=== PATIENT | female | born 1970 | race Two or more races ===

== ENCOUNTER 2023-03-24 13:10 | Outpatient (CLI) | payer OTHER ==
[~2023-03-24 13:10] MED LIST: COLACE100 MG PO; PERCOCET 5/3251 TAB PO
== END 2023-03-24 13:18 | disposition home or self-care (01) ==
LOC: MAMO-SONO 13:10
PROVIDERS: ATTEND General Practice
DX: Z12.31 Encounter for screening mammogram for malignant neoplasm of breast (principal); N63.0 Unspecified lump in unspecified breast

== ENCOUNTER 2023-04-16 22:34 | Emergency (ER) | payer OTHER ==
[~2023-04-16] VITALS: Ht 162.6 cm; Wt 105.2 kg
[2023-04-16] MEDS ORDERED: GLUMETZA500 MG PO (22:46)
== END 2023-04-17 03:01 | disposition home or self-care (01) ==
LOC: ER 22:34
DX: R10.84 Generalized abdominal pain (principal); K21.9 Gastro-esophageal reflux disease without esophagitis; K59.00 Constipation, unspecified; Z91.041 Radiographic dye allergy status; E11.9 Type 2 diabetes mellitus without complications; Z79.84 Long term (current) use of oral hypoglycemic drugs

== ENCOUNTER 2023-10-01 04:44 | Emergency (ER) | payer OTHER ==
[~2023-10-01] VITALS: Ht 162.6 cm; Wt 108.4 kg
[~2023-10-01 04:44] MED LIST changes: +GLUMETZA500 MG PO
[2023-10-01] MEDS ORDERED: ZESTORETIC 10-1 EACH (04:53)
[2023-10-01] MEDS ORDERED: CEPHALEXIN500 MG PO (05:56)
== END 2023-10-01 06:03 ==
LOC: ER 04:44
DX: S61.552A Open bite of left wrist, initial encounter (principal); S69.90XA Unspecified injury of unspecified wrist, hand and finger(s), initial encounter; X58.XXXA Exposure to other specified factors, initial encounter; Y93.89 Activity, other specified; Y92.69 Other specified industrial and construction area as the place of occurrence of the external cause; Y99.8 Other external cause status; Z91.041 Radiographic dye allergy status; I10 Essential (primary) hypertension; E11.9 Type 2 diabetes mellitus without complications; Z79.84 Long term (current) use of oral hypoglycemic drugs

== ENCOUNTER 2023-11-04 04:57 | Emergency (ER) | payer OTHER ==
[~2023-11-04] VITALS: Ht 162.6 cm; Wt 108.9 kg
[~2023-11-04 04:57] MED LIST changes: +CEPHALEXIN500 MG PO; +ZESTORETIC 10-1 EACH
[2023-11-04] MEDS ORDERED: ZYNCOF 20-400120 ML PO (06:36)
[2023-11-04] MEDS ORDERED: SINGULAIR10 MG PO (06:36)
[2023-11-04] MEDS ORDERED: BUDESONIDE0.5 MG/2 M IH (06:36)
[2023-11-04] MEDS ORDERED: ALBUTEROL2.5 MG/3 M IH (06:36)
== END 2023-11-04 06:43 ==
LOC: ER 04:57
DX: J45.901 Unspecified asthma with (acute) exacerbation (principal)

== ENCOUNTER → 2024-07-12 | Day surgery (SDC) | payer OTHER ==
[2024-07-08 09:48] LABS: URINE APPEARANCE Clear; URINE BILIRRUBIN Negative (NEGATIVE); URINE BLOOD Negative; URINE COLOR Yellow; URINE KETONE Negative (NEGATIVE); URINE LEUKOCYTE Negative; URINE NITRATE Negative; URINE PROTEIN Negative (NEGATIVE); URINE UROBILINOGEN 0.2 E.U./dl
[2024-07-08 09:51] LABS: URINE BACTERIA 1588.8 uL (0.0-1933); URINE EPITHELIAL CELLS 23.3 uL (0.0-38.8); URINE WBC 8.8 uL (0.0-23.2)
[2024-07-08 09:59] LABS: URINE CAST 0.45 uL (0.0-1.40); URINE GLUCOSE >=1000 MG/DL (NEGATIVE)
[2024-07-08 10:26] LABS: HEMATOCRIT 41.7 % (36.0-45.00); HEMOGLOBIN 13.9 g/dL (12.0-15.00); MEAN CELL VOLUME 84.2 fL (80.00-100.00); MEAN CORPUSCULAR HEMOGLOBIN 28.1 pg (27.00-32.0); MEAN CORPUSCULAR HGB CONC 33.4 g/dl (32.0-36.0); PLATELET COUNT 222 K/uL (150-450); RED BLOOD COUNT 4.95 M/uL (4.00-6.00); RED CELL DISTRIBUTION WIDTH 15.2 % (11.5-14.5)
[2024-07-08 10:55] LABS: INR 0.96; PARTIAL THROMBOPLASTIN TIME 30.2 SECONDS (22.0-34.0)
[2024-07-08 11:03] LABS: PROTHROMBIN TIME 10.5 SECONDS (9.0-11.5)
[2024-07-08 11:04] LABS: ALBUMIN 3.8 gm/dL (3.4-5.0); BILIRUBIN TOTAL 1.17 mg/dL (0.3-1.2); CALCIUM 9.5 mg/dL (8.5-10.1); CREATININE SERUM 0.61 mg/dL (0.55-1.02); GFR 101.46; GLOBULINA 3.1 G/DL (2.4-3.5); POTASSIUM 3.97 mEq/L (3.5-5.1); TOTAL PROTEIN 6.9 gm/dL (6.4-8.2)
[~2024-07-12] MED LIST changes: +ALBUTEROL2.5 MG/3 M IH; +BUDESONIDE0.5 MG/2 M IH; +FAMOTIDINE/PF 20 MG/2 ML VIAL IV ONE; +FAMOTIDINE/PF 20 MG/2 ML VIAL ONE; +JARDIANCE10 MG PO; +METFORMIN HCL850 MG PO; +MORPHINE SULFATE 4 MG/ML VIAL IV ONE; +POVIDONE-IODINE 118 ML BOTT TOP ONE; +RINGERS SOLUTION,LACTATED 1,000 ML IV SCH; +SIMVASTATIN5 MG; +SINGULAIR10 MG PO; +VITAMIN D310 MC1; +ZESTRIL2.5 MG; +ZYNCOF 20-400120 ML PO
== END | disposition home or self-care (01) ==
LOC: ADM 07-08 08:15 → CIR.AMB 06:40
PROVIDERS: ATTEND General Practice
DX: N95.0 Postmenopausal bleeding (principal); N88.2 Stricture and stenosis of cervix uteri; I10 Essential (primary) hypertension; E11.9 Type 2 diabetes mellitus without complications; Z91.041 Radiographic dye allergy status

== ENCOUNTER 2024-08-05 08:57 | Outpatient (CLI) | payer OTHER ==
[~2024-08-05 08:57] MED LIST changes: -FAMOTIDINE/PF 20 MG/2 ML VIAL IV ONE; -FAMOTIDINE/PF 20 MG/2 ML VIAL ONE; -MORPHINE SULFATE 4 MG/ML VIAL IV ONE; -POVIDONE-IODINE 118 ML BOTT TOP ONE; -RINGERS SOLUTION,LACTATED 1,000 ML IV SCH
== END 2024-08-05 09:18 | disposition home or self-care (01) ==
LOC: MRI 08:57
PROVIDERS: ATTEND General Practice
DX: N95.0 Postmenopausal bleeding (principal); N85.00 Endometrial hyperplasia, unspecified; R10.2 Pelvic and perineal pain
CPT/HCPCS: 72196

== ENCOUNTER 2024-08-25 07:14 | Outpatient (CLI) | payer OTHER | END 2024-08-25 07:39 | disposition home or self-care (01) | LOC: MAMO-SONO 07:14 | PROVIDERS: ATTEND General Practice | DX: R10.2 Pelvic and perineal pain (principal); N60.11 Diffuse cystic mastopathy of right breast; N60.12 Diffuse cystic mastopathy of left breast; N64.0 Fissure and fistula of nipple; N63.0 Unspecified lump in unspecified breast ==

== ENCOUNTER 2024-11-07 13:20 | Outpatient (CLI) | payer OTHER | END 2024-11-07 13:31 | disposition home or self-care (01) | LOC: SONOGRAMA 13:20 | PROVIDERS: ATTEND General Practice | DX: M79.601 Pain in right arm (principal); M79.621 Pain in right upper arm; M25.521 Pain in right elbow ==

== ENCOUNTER 2025-02-02 08:45 | Inpatient (IN) | payer OTHER ==
[~2025-02-02] VITALS: Ht 162.6 cm; Wt 99.8 kg
[~2025-02-02 08:45] MED LIST changes: -ZESTRIL2.5 MG; +ZESTRIL2.5 MG PO
[2025-02-03 09:43] LABS: HEMATOCRIT 45.4 % (36.0-45.00); HEMOGLOBIN 14.8 g/dL (12.0-15.00); MEAN CELL VOLUME 84.6 fL (80.00-100.00); MEAN CORPUSCULAR HEMOGLOBIN 27.6 pg (27.00-32.0); MEAN CORPUSCULAR HGB CONC 32.6 g/dl (32.0-36.0); PLATELET COUNT 195 K/uL (150-450); RED BLOOD COUNT 5.36 M/uL (4.00-6.00); RED CELL DISTRIBUTION WIDTH 15.3 % (11.5-14.5)
[2025-02-03 10:01] LABS: PH,URINE 5.5 (5.0-8.0); URINE APPEARANCE Clear; URINE BILIRRUBIN Negative (NEGATIVE); URINE BLOOD Negative; URINE COLOR Yellow; URINE GLUCOSE Negative (NEGATIVE); URINE KETONE Negative (NEGATIVE); URINE LEUKOCYTE Negative; URINE NITRATE Negative; URINE PROTEIN Negative (NEGATIVE); URINE UROBILINOGEN 0.2 E.U./dl
[2025-02-03 10:03] VITALS: BP 137/77
[2025-02-03 10:05] LABS: URINE BACTERIA 1669.4 uL (0.0-1933); URINE EPITHELIAL CELLS 51.9 uL (0.0-38.8); URINE WBC 21.5 uL (0.0-23.2)
[2025-02-03 10:07] LABS: URINE CAST 0.88 uL (0.0-1.40)
[2025-02-03 10:36] LABS: ALBUMIN 3.6 gm/dL (3.4-5.0); BILIRUBIN TOTAL 1.28 mg/dL (0.3-1.2); CALCIUM 9.3 mg/dL (8.5-10.1); CREATININE SERUM 0.61 mg/dL (0.55-1.02); GFR 101.46; GLOBULINA 3.1 G/DL (2.4-3.5); POTASSIUM 4.03 mEq/L (3.5-5.1); TOTAL PROTEIN 6.7 gm/dL (6.4-8.2)
[2025-02-03 10:42] LABS: INR 0.96; PARTIAL THROMBOPLASTIN TIME 27.5 SECONDS (22.0-34.0); PROTHROMBIN TIME 10.5 SECONDS (9.0-11.5)
[2025-02-03 11:03] LABS: RH POSITIVE
[2025-02-16] MEDS ORDERED: CEFAZOLIN SODIUM 1,000 MG VIAL ONE ×2 (14:29→20:49)
[2025-02-16] MEDS ORDERED: CHLORHEXIDINE GLUCONATE 120 ML BOTTLE TOP ONE (15:35)
[2025-02-16] MEDS ORDERED: SURGIFLO APPLICATOR 1 EACH APPL TOP ONE (15:36)
[2025-02-16] MEDS ORDERED: RINGERS SOLUTION,LACTATED 1,000 ML IV SCH (18:45)
[2025-02-16] MEDS ORDERED: ONDANSETRON HCL 2 MG/ML VIAL IV PRN (19:00)
[2025-02-16] MEDS ORDERED: MEPERIDINE HCL 25 MG/ML AMPUL IV PRN (19:00)
[2025-02-16] MEDS ORDERED: PROMETHAZINE HCL 25 MG/ML AMPUL IV PRN (19:00)
[2025-02-16] MEDS ORDERED: FAMOTIDINE/PF 20 MG/2 ML VIAL ONE (20:49)
[2025-02-16] MEDS ORDERED: FAMOTIDINE/PF 20 MG/2 ML VIAL IV SCH (21:00)
[2025-02-16] MEDS ORDERED: CEFAZOLIN SODIUM 1,000 MG VIAL IV SCH (21:00)
[2025-02-16 21:51] LABS: HEMATOCRIT 40.2 % (36.0-45.00); HEMOGLOBIN 13.1 g/dL (12.0-15.00); MEAN CELL VOLUME 84.8 fL (80.00-100.00); MEAN CORPUSCULAR HEMOGLOBIN 27.6 pg (27.00-32.0); MEAN CORPUSCULAR HGB CONC 32.6 g/dl (32.0-36.0); PLATELET COUNT 189 K/uL (150-450); RED BLOOD COUNT 4.75 M/uL (4.00-6.00); RED CELL DISTRIBUTION WIDTH 15.6 % (11.5-14.5)
[2025-02-16] MEDS ORDERED: MORPHINE SULFATE 4 MG/ML VIAL IV ONE (22:35)
[2025-02-17 00:45] VITALS: BP 108/65; O2SAT 95
[2025-02-17] MEDS ORDERED: ENOXAPARIN SODIUM 40 MG/0.4 ML SYRINGE SUBCUTANEO NR (06:00)
[2025-02-17 08:00] VITALS: BP 115/73; O2SAT 97
[2025-02-17] MEDS ORDERED: OxyCODONE HCL/APAP UD (PERCOCET) PO SCH (08:00)
[2025-02-17] MEDS ORDERED: ACETAMINOPHEN 500 MG GEL..CAP PO PRN (08:30)
[2025-02-17] MEDS ORDERED: LISINOPRIL 10 MG TABLET PO SCH (09:00)
[2025-02-17] MEDS ORDERED: DOCUSATE SODIUM 100MG CAP PO SCH (09:00)
[2025-02-17] MEDS ORDERED: SIMETHICONE 125 MG CAPSULE PO SCH (09:00)
[2025-02-17] MEDS ORDERED: LEVALBUTEROL HCL 0.63 MG/3 ML SOLUTION IH NR (13:00)
[2025-02-17] MEDS ORDERED: INSULIN LISPRO 1,000 UNIT/10 ML UNITS SUBCUTANEO PRN (16:15)
[2025-02-17] MEDS ORDERED: DEXTROSE 50 % IN WATER 0.5 G/ML VIAL IV PRN (16:15)
[2025-02-17 16:54] VITALS: BP 136/83; O2SAT 98
[2025-02-17] MEDS ORDERED: KETOROLAC TROMETHAMINE 30 MG VIAL IM SCH (17:00)
[2025-02-17] MEDS ORDERED: MetFORMIN HCL 850 MG TABLET PO SCH (17:00)
[2025-02-17] MEDS ORDERED: MINERAL OIL 30 ML BLIST.PACK PO NR (17:30)
[2025-02-17] MEDS ORDERED: MAGNESIUM HYDROXIDE 30 ML BLIST.PACK PO NR (17:30)
[2025-02-17] MEDS ORDERED: GUAIFENESIN 100 MG/5 ML BLIST.PACK PO SCH (18:00)
[2025-02-17] MEDS ORDERED: LEVALBUTEROL HCL 0.63 MG/3 ML SOLUTION IH SCH (21:00)
[2025-02-18 00:39] VITALS: BP 129/75; O2SAT 97
[2025-02-18 08:00] VITALS: BP 128/79; O2SAT 98
[2025-02-18] MEDS ORDERED: PHENOL 177 ML BOTTLE MM PRN (08:45)
[2025-02-18] MEDS ORDERED: PHENOL 177 ML BOTTLE MM ONE (08:45)
[2025-02-18] MEDS ORDERED: MORPHINE SULFATE 4 MG/ML CARTRIDGE IV ONE ×2 (08:45)
== END 2025-02-18 14:27 | disposition home or self-care (01) | DRG 743 ==
LOC: SURH 02-16 07:00 → O/R 02-16 11:56 → SURH 02-16 11:56
PROVIDERS: ADMIT General Practice; ATTEND General Practice
PROC: 0UT74ZZ Resection of Bilateral Fallopian Tubes, Percutaneous Endoscopic Approach (ICD-10-PCS; 2025-02-16)
PROC: 0UT94ZZ Resection of Uterus, Percutaneous Endoscopic Approach (ICD-10-PCS; principal; 2025-02-16 07:00)
PROC: 0UT24ZZ Resection of Bilateral Ovaries, Percutaneous Endoscopic Approach (ICD-10-PCS; 2025-02-17)
PROC: 0UN14ZZ Release Left Ovary, Percutaneous Endoscopic Approach (ICD-10-PCS; 2025-02-17)
PROC: 0UN74ZZ Release Bilateral Fallopian Tubes, Percutaneous Endoscopic Approach (ICD-10-PCS; 2025-02-17)
PROC: 0DNU4ZZ Release Omentum, Percutaneous Endoscopic Approach (ICD-10-PCS; 2025-02-17)
PROC: 0DNW4ZZ Release Peritoneum, Percutaneous Endoscopic Approach (ICD-10-PCS; 2025-02-17)
PROC: 0WBH4ZZ Excision of Retroperitoneum, Percutaneous Endoscopic Approach (ICD-10-PCS; 2025-02-17)
PROC: 0USG4ZZ Reposition Vagina, Percutaneous Endoscopic Approach (ICD-10-PCS; 2025-02-17)
DX: D25.1 Intramural leiomyoma of uterus (principal); D25.0 Submucous leiomyoma of uterus; N80.03 Adenomyosis of the uterus; N95.0 Postmenopausal bleeding

== ENCOUNTER 2025-02-24 11:55 | Inpatient (IN) | payer OTHER ==
[~2025-02-24] VITALS: Ht 162.6 cm; Wt 98.0 kg
[2025-02-24] MEDS ORDERED: MORPHINE SULFATE 4 MG/ML VIAL IV ONE (12:45)
[2025-02-24] MEDS ORDERED: 0.9 % SODIUM CHLORIDE 1,000 ML IV ONE (12:45)
[2025-02-24] MEDS ORDERED: METHYLPREDNISOLONE SOD SUCC 40 MG VIAL IV ONE (12:45)
[2025-02-24] MEDS ORDERED: DIPHENHYDRAMINE HCL 50 MG/ML VIAL 1ML IV ONE (12:45)
[2025-02-24] MEDS ORDERED: FAMOtidine 10 MG/ML (4ML VIAL) IV ONE (12:45)
[2025-02-24 13:12] LABS: HEMOGLOBIN 12.9 g/dL (12.0-15.00); MEAN CELL VOLUME 84.6 fL (80.00-100.00); MEAN CORPUSCULAR HEMOGLOBIN 27.9 pg (27.00-32.0); PLATELET COUNT 251 K/uL (150-450); RED BLOOD COUNT 4.61 M/uL (4.00-6.00); RED CELL DISTRIBUTION WIDTH 15.3 % (11.5-14.5)
[2025-02-24 13:52] LABS: ALBUMIN 2.9 gm/dL (3.4-5.0); BILIRUBIN TOTAL 0.5 mg/dL (0.3-1.2); CALCIUM 9.2 mg/dL (8.5-10.1); CREATININE SERUM 0.56 mg/dL (0.55-1.02); GFR 111.58; GLOBULINA 4.4 G/DL (2.4-3.5); POTASSIUM 3.5 mEq/L (3.5-5.1); TOTAL PROTEIN 7.3 gm/dL (6.4-8.2)
[2025-02-24 13:56] LABS: INR 0.96; PARTIAL THROMBOPLASTIN TIME 28.4 SECONDS (22.0-34.0); PROTHROMBIN TIME 10.5 SECONDS (9.0-11.5)
[2025-02-24] MEDS ORDERED: PIPERACILLIN/TAZOBACTAM SODIUM 3.375 GM VIAL IV SCH (21:24)
[2025-02-24] MEDS ORDERED: FAMOTIDINE/PF 20 MG/2 ML VIAL IV SCH (21:34)
[2025-02-24] MEDS ORDERED: MORPHINE SULFATE 4 MG/ML VIAL IV PRN (21:45)
[2025-02-24] MEDS ORDERED: ACETAMINOPHEN 500 MG GEL..CAP PO PRN (21:45)
[2025-02-24] MEDS ORDERED: 0.9 % SODIUM CHLORIDE 1,000 ML IV SCH (21:45)
[2025-02-25] MEDS ORDERED: LISINOPRIL 10 MG TABLET PO SCH (09:00)
[2025-02-25] MEDS ORDERED: MetFORMIN HCL 850 MG TABLET PO SCH (17:00)
[2025-02-25 17:15] VITALS: BP 120/80
[2025-02-25] MEDS ORDERED: KETOROLAC TROMETHAMINE 30 MG VIAL IV PRN (19:00)
[2025-02-26 00:10] VITALS: BP 102/68
[2025-02-26 07:53] VITALS: BP 96/58
[2025-02-26 16:00] VITALS: BP 126/77
[2025-02-26 20:00] VITALS: BP 102/64
[2025-02-27 00:14] VITALS: BP 134/69
[2025-02-27 06:28] LABS: HEMATOCRIT 33.5 % (36.0-45.00); MEAN CELL VOLUME 84.9 fL (80.00-100.00); MEAN CORPUSCULAR HEMOGLOBIN 27.9 pg (27.00-32.0); MEAN CORPUSCULAR HGB CONC 32.8 g/dl (32.0-36.0); PLATELET COUNT 248 K/uL (150-450); RED BLOOD COUNT 3.95 M/uL (4.00-6.00); RED CELL DISTRIBUTION WIDTH 15.3 % (11.5-14.5)
[2025-02-27 08:54] VITALS: BP 114/70
[2025-02-27 13:01] VITALS: BP 114/27
[2025-02-27 16:00] VITALS: BP 131/78
[2025-02-27] MEDS ORDERED: fentaNYL CITRATE 50 MCG/ML AMPUL IV PUSH ONE (17:15)
[2025-02-27] MEDS ORDERED: MIDAZOLAM HCL 2 MG/2 ML VIAL IV PUSH ONE (17:15)
[2025-02-27 23:51] VITALS: BP 105/62
[2025-02-28 05:00] VITALS: BP 110/76
[2025-02-28 12:35] VITALS: BP 115/74
[2025-02-28] MEDS ORDERED: LACTOBACILLUS ACIDOPHILUS 1 CAP CAP PO SCH (12:58)
[2025-02-28 14:48] LABS: HEMATOCRIT 37.5 % (36.0-45.00); HEMOGLOBIN 12.2 g/dL (12.0-15.00); MEAN CELL VOLUME 84.7 fL (80.00-100.00); MEAN CORPUSCULAR HEMOGLOBIN 27.5 pg (27.00-32.0); MEAN CORPUSCULAR HGB CONC 32.4 g/dl (32.0-36.0); PLATELET COUNT 324 K/uL (150-450); RED BLOOD COUNT 4.43 M/uL (4.00-6.00); RED CELL DISTRIBUTION WIDTH 15.4 % (11.5-14.5)
[2025-02-28] MEDS ORDERED: MORPHINE SULFATE 4 MG/ML CARTRIDGE IV PRN ×2 (15:45→16:00)
[2025-02-28 16:00] VITALS: BP 112/71
[2025-02-28] MEDS ORDERED: fentaNYL CITRATE 50 MCG/ML AMPUL IV PUSH ONE (18:15)
[2025-02-28] MEDS ORDERED: MIDAZOLAM HCL 2 MG/2 ML VIAL IV PUSH ONE (18:15)
[2025-03-01 00:13] VITALS: BP 113/71
[2025-03-01 05:00] VITALS: BP 105/62
[2025-03-01 08:00] VITALS: BP 107/71
[2025-03-01 16:00] VITALS: BP 104/58
[2025-03-01] MEDS ORDERED: DOCUSATE SODIUM 100MG CAP PO SCH (18:57)
[2025-03-01] MEDS ORDERED: GABAPENTIN 100 MG CAPSULE PO SCH (18:58)
[2025-03-01] MEDS ORDERED: ACETAMINOPHEN 500 MG GEL..CAP PO PRN (18:59)
[2025-03-01] MEDS ORDERED: DEXTROSE 50 % IN WATER 0.5 G/ML VIAL IV PRN (19:45)
[2025-03-01] MEDS ORDERED: INSULIN LISPRO 1,000 UNIT/10 ML UNITS SUBCUTANEO PRN (19:45)
[2025-03-01] MEDS ORDERED: ENOXAPARIN SODIUM 40 MG/0.4 ML SYRINGE SUBCUTANEO SCH (19:48)
[2025-03-01] MEDS ORDERED: GABAPENTIN 600 MG TABLET PO SCH ×2 (19:49→21:00)
[2025-03-01] MEDS ORDERED: KETOROLAC TROMETHAMINE 30 MG VIAL IV SCH (20:00)
[2025-03-02] VITALS: BP 102/69; O2SAT 97
[2025-03-02 06:36] LABS: HEMATOCRIT 35.5 % (36.0-45.00); MEAN CELL VOLUME 82.8 fL (80.00-100.00); MEAN CORPUSCULAR HEMOGLOBIN 28.1 pg (27.00-32.0); MEAN CORPUSCULAR HGB CONC 33.9 g/dl (32.0-36.0); PLATELET COUNT 272 K/uL (150-450); RED BLOOD COUNT 4.28 M/uL (4.00-6.00); RED CELL DISTRIBUTION WIDTH 14.9 % (11.5-14.5)
[2025-03-02 07:02] LABS: ALBUMIN 2.9 gm/dL (3.4-5.0); BILIRUBIN TOTAL 0.47 mg/dL (0.3-1.2); CALCIUM 8.8 mg/dL (8.5-10.1); CREATININE SERUM 0.57 mg/dL (0.55-1.02); GFR 109.32; GLOBULINA 3.5 G/DL (2.4-3.5); POTASSIUM 4.04 mEq/L (3.5-5.1); TOTAL PROTEIN 6.4 gm/dL (6.4-8.2)
[2025-03-02 16:03] VITALS: BP 113/68
[2025-03-02] MEDS ORDERED: PIPERACILLIN/TAZOBACTAM SODIUM 3.375 GM VIAL IV SCH (18:00)
[2025-03-02] MEDS ORDERED: SODIUM CHLORIDE 0.45 % 1,000 ML IV SCH (19:00)
[2025-03-02] MEDS ORDERED: BACLOFEN 10 MG TABLET PO PRN (19:01)
[2025-03-02] MEDS ORDERED: OxyCODONE HCL 5 MG TABLET (ROXICODONE) PO PRN (19:15)
[2025-03-02] MEDS ORDERED: FAMOTIDINE/PF 20 MG/2 ML VIAL IV SCH (21:00)
[2025-03-03] VITALS: BP 96/63
[2025-03-03] MEDS ORDERED: KETOROLAC TROMETHAMINE 30 MG VIAL IV PRN
[2025-03-03] MEDS ORDERED: KETOROLAC TROMETHAMINE 30 MG VIAL IV SCH (01:00)
[2025-03-03] MEDS ORDERED: METHYLPREDNISOLONE SOD SUCC 40 MG VIAL IV NR (07:00)
[2025-03-03] MEDS ORDERED: DIPHENHYDRAMINE HCL 50 MG/ML VIAL 1ML IV NR (07:00)
[2025-03-03 07:22] LABS: ALBUMIN 2.8 gm/dL (3.4-5.0); BILIRUBIN TOTAL 0.6 mg/dL (0.3-1.2); CALCIUM 8.4 mg/dL (8.5-10.1); CREATININE SERUM 0.51 mg/dL (0.55-1.02); GFR 124.29; GLOBULINA 3.3 G/DL (2.4-3.5); POTASSIUM 3.71 mEq/L (3.5-5.1); TOTAL PROTEIN 6.1 gm/dL (6.4-8.2)
[2025-03-03 07:30] LABS: C-REACTIVE PROTEIN 1.08 MG/DL (0.00-0.29)
[2025-03-03 09:00] VITALS: BP 111/67
[2025-03-03] MEDS ORDERED: AMINO ACIDS 1 EACH TABLET PO SCH (09:00)
[2025-03-03 16:00] VITALS: BP 107/55
[2025-03-04] VITALS: BP 125/78
[2025-03-04 04:30] VITALS: BP 115/75
[2025-03-04 09:22] VITALS: BP 131/88
[2025-03-04 17:12] VITALS: BP 114/71
[2025-03-04 21:10] VITALS: BP 141/78
[2025-03-05] VITALS: BP 107/63
[2025-03-05 05:00] VITALS: BP 120/77
[2025-03-05 07:43] LABS: BASO % 0.5 % (0.1-1.2); EOS # 0.39 (0.04-0.54); EOS % 4.6 % (0.7-7.0); HEMATOCRIT 37.4 % (34.1-44.9); HEMOGLOBIN 12.3 g/dL (11.2-15.7); LYMPH # 2.23 (1.18-3.74); LYMPH % 26.2 % (19.3-53.1); MEAN CORPUSCULAR HEMOGLOBIN 27.2 pg (25.6-32.2); MONO # 0.46 (0.24-0.82); MONO % 5.4 % (4.7-12.5); NEUT # 5.34 (1.56-6.13); NEUT % 62.7 % (34.0-71.1); PLATELET COUNT 278 K/uL (163-369); RED BLOOD COUNT 4.53 M/uL (3.93-5.22); RED CELL DISTRIBUTION WIDTH 14.6 % (11.6-14.4)
[2025-03-05 08:00] VITALS: BP 117/69
[2025-03-05 08:21] LABS: ALBUMIN 2.9 gm/dL (3.4-5.0); BILIRUBIN TOTAL 0.52 mg/dL (0.3-1.2); CALCIUM 8.7 mg/dL (8.5-10.1); CREATININE SERUM 0.69 mg/dL (0.55-1.02); GFR 87.69; GLOBULINA 3.5 G/DL (2.4-3.5); MAGNESIUM 2.3 mg/dL (1.8-2.4); POTASSIUM 3.86 mEq/L (3.5-5.1); TOTAL PROTEIN 6.4 gm/dL (6.4-8.2)
[2025-03-05 16:57] VITALS: BP 132/86
[2025-03-05 20:45] VITALS: BP 107/71
[2025-03-06 00:06] VITALS: BP 108/67
[2025-03-06 05:00] VITALS: BP 109/65
[2025-03-06 08:00] VITALS: BP 123/75
[2025-03-06 12:00] VITALS: BP 121/76
[2025-03-06 16:54] VITALS: BP 118/72
[2025-03-06] MEDS ORDERED: PIPERACILLIN/TAZOBACTAM SODIUM 3.375 GM in 0.9 % SODIUM CHLORIDE 100 ML IV SCH (18:00)
[2025-03-06] MEDS ORDERED: NEURONTIN600 MG PO (19:39)
[2025-03-06] MEDS ORDERED: COLACE100 MG PO (19:39)
[2025-03-06] MEDS ORDERED: KETO10TA2 PO (19:39)
[2025-03-06] MEDS ORDERED: FAMOTIDINE20 MG/2 M1 PO (19:41)
[2025-03-06] MEDS ORDERED: INTESTINEX680 M1 PO (19:41)
[2025-03-07 01:04] VITALS: BP 107/67
[2025-03-07 05:19] VITALS: BP 105/71
[2025-03-07 08:00] VITALS: BP 123/77
[2025-03-07] MEDS ORDERED: PEPCID AC20 MG PO (11:58)
[2025-03-07] MEDS ORDERED: augmentin (11:58)
== END 2025-03-07 13:24 | disposition home or self-care (01) | DRG 863 ==
LOC: ER 11:56 → OB/GYN 23:42 → SEC-K 23:42 → OB/GYN 02-25 10:57
PROVIDERS: General Practice; Internal Medicine; Student in an Organized Health Care Education/Training Program; ADMIT General Practice; ATTEND General Practice
PROC: BW21YZZ Computerized Tomography (CT Scan) of Abdomen and Pelvis using Other Contrast (ICD-10-PCS; principal; 2025-02-24)
PROC: BW21ZZZ Computerized Tomography (CT Scan) of Abdomen and Pelvis (ICD-10-PCS; 2025-02-24)
PROC: 0W9J3ZZ Drainage of Pelvic Cavity, Percutaneous Approach (ICD-10-PCS; 2025-02-27)
PROC: BW21ZZZ Computerized Tomography (CT Scan) of Abdomen and Pelvis (ICD-10-PCS; 2025-03-03)
PROC: B54BZZZ Ultrasonography of Right Lower Extremity Veins (ICD-10-PCS; 2025-03-03)
DX: T81.43XA Infection following a procedure, organ and space surgical site, initial encounter (principal); R18.8 Other ascites; N99.842 Postprocedural seroma of a genitourinary system organ or structure following a genitourinary system procedure; N99.840 Postprocedural hematoma of a genitourinary system organ or structure following a genitourinary system procedure; Z90.710 Acquired absence of both cervix and uterus; Y65.8 Other specified misadventures during surgical and medical care

== ENCOUNTER 2025-05-18 07:05 | Outpatient (CLI) | payer OTHER ==
[~2025-05-18 07:05] MED LIST changes: +FAMOTIDINE20 MG/2 M1 PO; +INTESTINEX680 M1 PO; +KETO10TA2 PO; +NEURONTIN600 MG PO; +PEPCID AC20 MG PO; +augmentin
== END 2025-05-18 07:11 | disposition home or self-care (01) ==
LOC: SONOGRAMA 07:05
PROVIDERS: ATTEND General Practice
DX: K76.0 Fatty (change of) liver, not elsewhere classified (principal); E66.9 Obesity, unspecified; R94.5 Abnormal results of liver function studies